=== PATIENT | male | born 1950 | race African-American/Black ===

== ENCOUNTER → 2016-10-07 | Emergency (ER) | payer BC, OTHER ==
[~2016-10-07] MED LIST: ALBUTEROL SO4 0.083% IH SOL 2.5 MG/3 ML VIAL.NEB. NEB ONE; ALBUTEROL SO4 2.5/IPRATROPIUM 0.5 INH SOL 3 ML VIAL.NEB. NEB ONE; AZITHROMYCIN 250 MG TABLET (FP) ONE; AZITHROMYCIN 250 MG TABLET (FP) PO ONE; predniSONE 20 MG TABLET (UD) ONE; predniSONE 20 MG TABLET (UD) PO ONE
[2016-10-07 04:57] VITALS: BMI 36.7
--- NOTE | 2016-10-07 05:10 | PDOC ---
History of Present Illness - General Stated Complaint: ALLERGIES, COUGH, SOB Time Seen by Provider: 10/07/16 04:48 History Source: Patient Exam Limitations: No Limitations - History of Present Illness Initial Comments: 10/07/16 05:10 66yo Male patient w/ PmHx: Asthma, Sleep Apnea, HTN, and seasonal allergies presents to ED c/o persistent cough, post nasal drip for past 4-5 days getting worse. Patient reports using Zyrtec with minimal relief. He states due to financial reasons he did not purchase singulair this year. He denies fever, CP, Abd pain, Diff breathing, rash, back pain or any other complaints at this time. Timing/Duration: reports: week Severity: reports: moderate Possible Cause: Yes: occasional episodes Modifying Factors: improves with: albuterol inhaler, coughing Associated Symptoms: reports: cough, sore throat Past History - Travel Traveled outside of the country in the last 30 days: No Close contact w/someone who was outside of country & ill: No - Past Medical History Allergies/Adverse Reactions: Allergies Allergy/AdvReac Type Severity Reaction Status Date / Time No Known Allergies Allergy Verified 08/15/15 01:28 Home Medications: Ambulatory Orders Montelukast Sodium [Singulair] 10 mg PO DAILY 10/19/11 Nebivolol HCl [Bystolic] 5 mg PO DAILY 10/19/11 Hydrocodone/Acetaminophen [Dovray 5-325 Tablet] 1 each PO PRN 08/15/15 Metaxalone [Skelaxin] 800 mg PO BID PRN 08/15/15 Azithromycin [Zithromax -] 250 mg PO DAILY #4 tablet 10/07/16 Cetirizine HCl [Zyrtec -] 10 mg PO DAILY 10/07/16 Montelukast Na [Singulair -] 10 mg PO HS #30 tablet 10/07/16 Prednisone [Prednisone 50 MG TABLETS] 50 mg PO DAILY #3 tablet 10/07/16 Asthma: Yes HTN: Yes Suicide Attempt (Hx): No Other medical history: Sleep Apnea - Immunization History Immunization Up to Date: Yes - Psycho/Social/Smoking Cessation Hx Anxiety: No Suicidal Ideation: No Smoking Status: No Smoking History: Former smoker Have you smoked in the past 12 months: No Number of Cigarettes Smoked Daily: 0 If you are a former smoker, when did you quit?: 25 years ago Information on smoking cessation initiated: No Hx Alcohol Use: No Drug/Substance Use Hx: No Substance Use Type: None Respiratory Specific PMHX - Complaint Specific PMHX Angina: No Bronchitis: No Pneumonia: No Pulmonary Embolus: No TB (Tuberculosis): No Review of Systems - Review of Systems Able to Perform ROS?: Yes Is the patient limited Macedonian proficient: No Constitutional: No: Chills, Fever HEENTM: Yes: Throat Pain Respiratory: Yes: Cough, Productive cough. No: Shortness of Breath, Stridor, Wheezing Cardiac (ROS): No: Chest Pain, Palpitations, Syncope, Chest Tightness ABD/GI: No: Constipated, Diarrhea, Nausea, Poor Appetite, Poor Fluid Intake, Vomiting, Abdominal cramping : No: Burning, Dysuria, Frequency, Flank Pain, Hematuria, Pain Musculoskeletal: No: Back Pain Integumentary: No: Bruising, Dryness, Erythema, Pruritus, Rash Neurological: No: Headache, Numbness, Paresthesia, Seizure, Ataxia, Dizziness All Other Systems: Reviewed and Negative *Physical Exam - Vital Signs Last Vital Signs Temp Pulse Resp BP Pulse Ox 98.4 F 71 18 116/81 96 10/07/16 04:52 10/07/16 04:52 10/07/16 04:52 10/07/16 04:52 10/07/16 04:52 - Physical Exam General Appearance: Yes: Nourished, Appropriately Dressed. No: Apparent Distress, Mild Distress, Moderate Distress, Severe Distress HEENT: positive: EOMI, SAILAJA, Normal ENT Inspection, Normal Voice, Symmetrical, TMs Normal, Pharynx Normal, Pharyngeal Erythema. negative: Tonsillar Exudate, Tonsillar Erythema, Nasal Congestion, Rhinorrhea, Sinus Tenderness, TM Bulging, TM Dull, TM Erythema Neck: positive: Trachea midline, Normal Thyroid, Supple. negative: Stridor, Lymphadenopathy (R), Lymphadenopathy (L) Respiratory/Chest: positive: Lungs Clear, Normal Breath Sounds. negative: Chest Tender, Respiratory Distress, Accessory Muscle Use, Labored Respiration, Rapid RR Cardiovascular: positive: Regular Rhythm, Regular Rate Gastrointestinal/Abdominal: positive: Normal Bowel Sounds, Soft. negative: Distended, Guarding, Rebound, Tenderness Musculoskeletal: positive: Normal Inspection. negative: CVA Tenderness Extremity: positive: Normal Capillary Refill, Normal Inspection, Normal Range of Motion. negative: Pedal Edema, Swelling, Calf Tenderness, Erythema, Inflammation Integumentary: positive: Normal Color, Dry, Warm. 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 He states he would like to be d/c'd. *DC/Admit/Observation/Transfer Diagnosis at time of Disposition: Bronchitis - Discharge Dispostion Disposition: HOME Condition at time of disposition: Improved Admit: No - Prescriptions Prescriptions: Prednisone [Prednisone 50 MG TABLETS] 50 mg PO DAILY #3 tablet Montelukast Na [Singulair -] 10 mg PO HS #30 tablet Azithromycin [Zithromax -] 250 mg PO DAILY #4 tablet - Patient Instructions Printed Discharge Instructions: DI for Acute Bronchitis Additional Instructions: FOLLOW UP WITH YOUR DOCTOR NEEDED. TAKE MEDICATIONS PRESCRIBED. RETURN IF SYMPTOMS WORSEN OR ANY CONCERNS FOR FURTHER EVALUATION. DRINK PLENTY FLUIDS. Print Language: PERSIAN
--- NOTE | 2016-10-07 05:45 | PDOC ---
*Physical Exam - Vital Signs Last Vital Signs Temp Pulse Resp BP Pulse Ox 98.4 F 71 18 116/81 96 10/07/16 04:52 10/07/16 04:52 10/07/16 04:52 10/07/16 04:52 10/07/16 04:52 ED Treatment Course - Medications Given in the ED: ED Medications Discontinued Medications Generic Name Dose Route Start Last Admin Trade Name Fabrizio PRN Reason Stop Dose Admin Albuterol Sulfate 1 amp 10/07/16 05:02 10/07/16 05:29 Ventolin 0.083% Nebulizer Soln - NEB 10/07/16 05:03 1 amp ONCE ONE Administration Azithromycin 500 mg 10/07/16 05:03 10/07/16 05:25 Zithromax - PO 10/07/16 05:04 500 mg ONCE ONE Administration Prednisone 60 mg 10/07/16 05:03 10/07/16 05:25 Deltasone - PO 10/07/16 05:04 60 mg ONCE ONE Administration Medical Decision Making - Medical Decision Making 10/07/16 05:45 agree with care from KENDRICK Buchanan *DC/Admit/Observation/Transfer Diagnosis at time of Disposition: Bronchitis - Discharge Dispostion Disposition: HOME Condition at time of disposition: Improved - Prescriptions Prescriptions: Prednisone [Prednisone 50 MG TABLETS] 50 mg PO DAILY #3 tablet Montelukast Na [Singulair -] 10 mg PO HS #30 tablet Azithromycin [Zithromax 250mg Tablets -] 250 mg PO DAILY #4 tablet - Referrals Referrals: Mali Rachel MD [Primary Care Provider] - - Patient Instructions Printed Discharge Instructions: DI for Acute Bronchitis Additional Instructions: FOLLOW UP WITH YOUR DOCTOR NEEDED. TAKE MEDICATIONS PRESCRIBED. RETURN IF SYMPTOMS WORSEN OR ANY CONCERNS FOR FURTHER EVALUATION. DRINK PLENTY FLUIDS. Print Language: ECUADOREAN - Post Discharge Activity Work/School Note: Back to Work
[2016-10-07 07:13] VITALS: BP 146/85; PULSE 69; TEMP 98.2
== END | disposition home or self-care (01) ==
LOC: JER 03:57
PROC: 3E0F7GC Introduction of Other Therapeutic Substance into Respiratory Tract, Via Natural or Artificial Opening (ICD-10-PCS; principal; 2016-10-07)
DX: J40 Bronchitis, not specified as acute or chronic (principal); I10 Essential (primary) hypertension; J45.909 Unspecified asthma, uncomplicated; J30.2 Other seasonal allergic rhinitis; G47.30 Sleep apnea, unspecified; Z87.891 Personal history of nicotine dependence
CPT/HCPCS: 99281-25

== ENCOUNTER 2018-03-05 06:46 | Emergency (ER) | payer OTHER, BC ==
[2018-03-05 07:21] VITALS: BMI 36.6
--- NOTE | 2018-03-05 07:22 | PDOC ---
History of Present Illness - General Chief Complaint: Pain Stated Complaint: NECK PAIN Time Seen by Provider: 03/05/18 07:15 History Source: Patient Exam Limitations: No Limitations - History of Present Illness Initial Comments: 03/05/18 07:53 Mr. Staton is a 67 yo M with a hx of HTN, asthma, and AKHIL who presents to the emergency department with bilateral neck pain that has been ongoing for 3 days. 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 He states the pain is stabbing like, random onset, lasts for seconds, and relieves on its own. Denies having the following associative symptoms during the episode: headaches, visual changes, dizziness, lightheadedness, nausea, and vomiting. On Thursday, he experienced a chest pressure that lasted for 5-10 minutes while at rest without radiation located in the center of the chest. He denies having chest pain in the past and denies SOB/chest pain with exertion. Denies the following: fever, chills, nausea , vomiting, current chest pain and SOB, abdominal pain, dysuria, hematuria, melena, hematochezia, and leg pain/swelling. Denies recent trauma. Pmhx: Refer to above Shx: retina repair 9 months ago right eye Meds: bystolic, ventolin, multivitamin Allergies: NKDA Social hx: Denies tobacco, alcohol, and substance abuse. PMD: Dr. Sung Past History - Past Medical History Allergies/Adverse Reactions: Allergies Allergy/AdvReac Type Severity Reaction Status Date / Time No Known Allergies Allergy Verified 03/05/18 07:08 Home Medications: Ambulatory Orders Nebivolol HCl [Bystolic] 5 mg PO DAILY 10/19/11 Montelukast Na [Singulair -] 10 mg PO HS #30 tablet 10/07/16 Aspirin 81 mg PO DAILY 03/05/18 Asthma: Yes (on remission) COPD: No HTN: Yes Other medical history: Sleep apnea - Immunization History Immunization Up to Date: Yes - Suicide/Smoking/Psychosocial Hx Smoking Status: No Smoking History: Never smoked Have you smoked in the past 12 months: No Number of Cigarettes Smoked Daily: 0 If you are a former smoker, when did you quit?: 25 years ago Information on smoking cessation initiated: No Hx Alcohol Use: No Drug/Substance Use Hx: No Substance Use Type: None Review of Systems - Review of Systems Able to Perform ROS?: Yes Is the patient limited Somali proficient: No Constitutional: No: Chills, Diaphoresis, Fever HEENTM: Yes: Nose Congestion. No: Eye Pain, Recent change in vision, Ear Pain, Nose Pain, Throat Pain, Mouth Pain Respiratory: No: Cough, Shortness of Breath, SOB with Exertion, SOB at Rest Cardiac (ROS): Yes: Chest Pain (thursday episode). No: Irregular Heart Rate, Lightheadedness, Palpitations, Syncope, Chest Tightness ABD/GI: No: Constipated, Diarrhea, Nausea, Rectal Bleeding, Vomiting, Tarry Stools : No: Burning, Dysuria, Hematuria Musculoskeletal: No: Back Pain, Neck Pain Integumentary: No: Rash Neurological: No: Headache, Numbness, Tremors, Weakness Psychiatric: Yes: Stressors. No: Anxiety Endocrine: No: Unexplained Weight Gain Hematologic/Lymphatic: No: Anemia *Physical Exam - Vital Signs Last Vital Signs Temp Pulse Resp BP Pulse Ox 97.7 F 57 L 20 137/93 98 03/05/18 07:09 03/05/18 07:09 03/05/18 07:09 03/05/18 07:09 03/05/18 07:09 - Physical Exam General Appearance: Yes: Nourished, Appropriately Dressed. No: Apparent Distress HEENT: positive: EOMI, SAILAJA, Normal ENT Inspection, Normal Voice, Symmetrical, TMs Normal, Pharynx Normal. negative: Rhinorrhea Neck: positive: Trachea midline. negative: Tender, Carotid bruit, Lymphadenopathy (R), Lymphadenopathy (L) Respiratory/Chest: positive: Lungs Clear, Normal Breath Sounds, Accessory Muscle Use. negative: Chest Tender, Respiratory Distress Cardiovascular: positive: Regular Rhythm, S1, S2, Bradycardia. negative: Systolic Murmur Gastrointestinal/Abdominal: positive: Normal Bowel Sounds, Flat, Soft. negative : Tender, Pulsatile Mass Lymphatic: negative: Adenopathy Musculoskeletal: positive: Normal Inspection. negative: CVA Tenderness Extremity: positive: Normal Capillary Refill, Normal Inspection, Normal Range of Motion. 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 negative: Sensory Deficit Heart Score/ECG Review - ECG Intrepretation Comment:: 03/05/18 21:41 ventricular rate is 50 bpm, NE 196 ms, QRS duration is 108 ms, QTc is 412 ms. Sinus bradycardia. No ST elevations or depressions noted. ED Treatment Course - LABORATORY CBC & Chemistry Diagram: 03/05/18 08:10 03/05/18 08:10 Medical Decision Making - Medical Decision Making Mr. Staton is a 67 yo M with a hx of HTN, asthma, and AKHIL who presents to the emergency department with bilateral neck pain that has been ongoing for 3 days. Initial vitals: Initial Vital Signs Temp Pulse Resp BP Pulse Ox 97.7 F 57 L 20 137/93 98 03/05/18 07:09 03/05/18 07:09 03/05/18 07:09 03/05/18 07:09 03/05/18 07:09 ddx: carotid dissection vs msk pain vs ACS vs PNA vs pleuritis vs dysrhythmia vs metabolic disturbance. Work up: Laboratory Results - last 24 hr 03/05/18 03/05/18 03/05/18 08:10 08:10 11:01 WBC 3.9 L RBC 4.06 Hgb 14.0 Hct 39.7 MCV 97.7 H MCH 34.5 H MCHC 35.3 RDW 13.2 Plt Count 181 MPV 8.8 Absolute Neuts (auto) 1.7 Neutrophils % 43.7 Lymphocytes % 39.7 Monocytes % 13.4 H Eosinophils % 2.4 Basophils % 0.8 Nucleated RBC % 0 Sodium 141 Potassium 5.2 H Chloride 108 H Carbon Dioxide 26 Anion Gap 7 L BUN 15 Creatinine 0.7 Creat Clearance w eGFR > 60 Random Glucose 79 Calcium 8.0 L Total Bilirubin 0.4 AST 35 ALT 29 Alkaline Phosphatase 47 Creatine Kinase 273 233 Creatine Kinase Index 0.3 0.4 CK-MB (CK-2) 1.0 < 1.0 Troponin I < 0.02 < 0.02 Total Protein 7.0 Albumin 3.7 The patients hx and PE warranted an ACS r/o. Upon re-evaluation, the patient had a previous angioplasty in the past that showed one of the coronary arteries having 30% occlusion. denies hx of PA. EKG did not show active ischemia or previous infarct. The patient had a troponin drawn that was negative. Given that the patients pain was episodic, lasting seconds and was not sustained and progressively worsening with HENT complaints without inciting event, less likely to be dissection. CXR did not show acute pathologies. Likely this pain is secondary to muscular pain likely due increase in work load and stress. Will discharge the patient with close follow up with PMD as well strict return precautions. The patient understood the plan and agreed to it. Dispo: DC *DC/Admit/Observation/Transfer Diagnosis at time of Disposition: Neck pain Chest pain Qualifiers: Chest pain type: unspecified Qualified Code(s): R07.9 - Chest pain, unspecified - Discharge Dispostion Disposition: HOME Decision to Admit order: No - Referrals Referrals: Mali Rachel MD [Primary Care Provider] - Garry Marion MD [Staff Physician] - - Patient Instructions Printed Discharge Instructions: DI for Atypical Chest Pain Additional Instructions: You were seen in the emergency department for the evaluation of your neck pain and subsequent chest pain. You had an EKG done which was within normal limits. We evaluated your cardiac enzymes and they were within normal limits. 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 Please return to the emergency department if you have sustained chest pain, new qualities associated with the pain, and lightheadedness/dizziness/visual changes. Thank you. - Post Discharge Activity
[2018-03-05 08:19] LABS: BASO % 0.8 % (0-2.0); EOS % 2.4 % (0-4.5); HEMATOCRIT 39.7 % (35.4-49); LYMPH % 39.7 % (8-40); MCH 34.5 pg (25.7-33.7); MCHC 35.3 g/dl (32.0-35.9); MEAN CELL VOLUME 97.7 fl (80-96); MEAN PLT VOLUME 8.8 fl (7.5-11.1); MONO % 13.4 % (3.8-10.2); NEUT % 43.7 % (42.8-82.8); PLATELET COUNT 181 K/MM3 (134-434); RBC 4.06 M/mm3 (4.00-5.60); RDW 13.2 % (11.9-15.9); WHITE BLOOD COUNT 3.9 K/mm3 (4.0-10.0)
--- NOTE | 2018-03-05 08:27 | PDOC ---
Attending Attestation - Resident Resident Name: Warren Jarrell - ED Attending Attestation I have performed the following: I have examined & evaluated the patient, The case was reviewed & discussed with the resident, I agree w/resident's findings & plan, Exceptions are as noted - HPI HPI: 03/05/18 13:25 67 years old past medical history significant for hypertension no family history of coronary artery disease no tobacco presents with seconds of bilateral neck discomfort last week and and Thursday a very brief episode of chest discomfort seconds as well no radiation no associated dizziness lightheadedness nausea vomiting In the emergency department patient also had a second of brief discomfort - Physicial Exam PE: 03/05/18 13:25 Vitals: Triage Vital signs reviewed General Appearance: no acute distress, well nourished well developed, Head: Atraumatic, Neck: Supple;No Nucal rigidity, no bruits Chest Wall: Nontender Cardiac: Regular rate and rhythym, no murmurs, no rubs, no gallops, Lungs: Clear to auscultation bilateral, good air movement bilaterally, Abdomen: Soft, non distended, normal bowel sounds, non tender to palpation Extremities: Full range of motion to all extremities, no cyanosis, clubbing, or edema Skin: Warm and dry, no rashes or lesions, no rash, no petechiae Psych: normal mood, normal affect - Medical Decision Making 67 years old with atypical chest discomfort heart score 3 EKG nonischemic first troponin negative Given very brief seconds of pain in the emergency department a second troponin sent which was also negative Patient feels comfortable is pain-free 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 Findings, need for follow-up and strict return instructions discussed patient. Heart Score/ECG Review - History History: Slightly suspicious - Electrocardiogram EKG: Normal - Age Age: >/= 65 - Risk Factors Risk Factors Heart Score: Yes Hx Hypertension Based on the list above the patient has:: 1-2 risk factors - Troponin Troponin: </= normal limit - Score Heart Score - Total: 3 - ECG Impressions Comment:: 03/05/18 11:[address] elevations noted T-wave inversions.
[2018-03-05 08:49] LABS: ALBUMIN 3.7 g/dl (3.4-5.0); ALK PHOS 47 U/L (45-117); ANION GAP 7 MMOL/L (8-16); BILIRUBIN,TOTAL 0.4 mg/dL (0.2-1); BLOOD UREA NITROGEN 15 mg/dL (7-18); CHLORIDE 108 mmol/L (98-107); CO2 26 mmol/L (21-32); CREATININE 0.7 mg/dL (0.55-1.3); GLUCOSE,RANDOM 79 mg/dL (74-106); POTASSIUM 5.2 mmol/L (3.5-5.1); SGOT/AST 35 U/L (15-37); SGPT/ALT 29 U/L (13-61); SODIUM 141 mmol/L (136-145)
[2018-03-05 11:46] VITALS: BP 120/72; PULSE 63; TEMP 98.6
--- NOTE | 2018-03-07 19:20 | EKG ---
Test Reason : Blood Pressure : / mmHG Vent. Rate : 050 BPM Atrial Rate : 050 BPM P-R Int : 196 ms QRS Dur : 108 ms QT Int : 452 ms P-R-T Axes : 057 -04 013 degrees QTc Int : 412 ms SINUS BRADYCARDIA MINIMAL VOLTAGE CRITERIA FOR LVH, MAY BE NORMAL VARIANT BORDERLINE ECG WHEN COMPARED WITH ECG OF 26-NOV-2012 00:50, VENT. RATE HAS DECREASED BY 50 BPM Confirmed by HASMUKH STROUD, EDUARDO ([id number]) on 03/07/2018 7:20:48 PM Referred By: Confirmed By:EDUARDO NOE MD
== END 2018-03-05 12:27 | disposition home or self-care (01) ==
LOC: JER 06:46
DX: M54.2 Cervicalgia (principal); R07.9 Chest pain, unspecified; J45.909 Unspecified asthma, uncomplicated; I10 Essential (primary) hypertension; Z87.891 Personal history of nicotine dependence; G47.30 Sleep apnea, unspecified
CPT/HCPCS: 36415; 71046-TC-FY; 80053; 82550; 82553; 84484; 85025; 93005; 93010; 99284-25

== ENCOUNTER 2018-11-03 06:18 | Emergency (ER) | payer OTHER, BC ==
[2018-11-03 07:01] VITALS: TEMP 98.8; BMI 36.8
[2018-11-03 07:54] LABS: BASO % 1.1 % (0-2.0); EOS % 1.9 % (0-4.5); HEMATOCRIT 39.9 % (35.4-49); HEMOGLOBIN 13.9 GM/dL (11.7-16.9); LYMPH % 33.2 % (8-40); MCHC 34.8 g/dl (32.0-35.9); MEAN CELL VOLUME 97.7 fl (80-96); MEAN PLT VOLUME 7.8 fl (7.5-11.1); MONO % 12.3 % (3.8-10.2); NEUT % 51.5 % (42.8-82.8); PLATELET COUNT 186 K/MM3 (134-434); RBC 4.08 M/mm3 (4.00-5.60); RDW 13.2 % (11.9-15.9); WHITE BLOOD COUNT 4.4 K/mm3 (4.0-10.0)
[2018-11-03 08:32] LABS: INR 1.04 (0.83-1.09); PROTHROMBIN TIME (PATIENT) 12.3 SEC (9.7-13.0)
[2018-11-03 08:33] LABS: ALBUMIN 3.8 g/dl (3.4-5.0); BILIRUBIN,TOTAL 0.6 mg/dL (0.2-1); BLOOD UREA NITROGEN 16.1 mg/dL (7-18); CALCIUM 8.5 mg/dL (8.5-10.1); CREATININE 0.9 mg/dL (0.55-1.3); POTASSIUM 4.4 mmol/L (3.5-5.1); TOT PROT 6.8 g/dl (6.4-8.2)
[2018-11-03 08:33] LABS: MAGNESIUM 2.4 mg/dL (1.8-2.4)
--- NOTE | 2018-11-03 08:33 | PDOC ---
Documentation entered by Blanche Salinas SCRIBE, acting as scribe for Cheikh London MD. Cheikh London MD: This documentation has been prepared by the Rita yap Sammi, SCRIBE, under my direction and personally reviewed by me in its entirety. I confirm that the documentation accurately reflects all work, treatment, procedures, and medical decision making performed by me. History of Present Illness - General Chief Complaint: Respiratory Stated Complaint: PRODUCTIVE COUGH Time Seen by Provider: 11/03/18 07:08 History Source: Patient Exam Limitations: No Limitations - History of Present Illness Initial Comments: 11/03/18 07:45 The patient is a 68 year old male, with a significant PMH of HTN, asthma, bronchitis, sleep apnea, who presents to the emergency department for evaluation of 3 episodes of coughing up blood. The patient states he woke up around 5am this morning and noticed blood in his mouth that he assumed was from his removable dental implant. He reports subsequently coughing 3 times and spit up about 2-3 tablespoons of bright red blood after rinsing his mouth. He reports touching the blood in the sink to see if it was mixed in with mucous and he said it "felt like it." The patient states he went to inform his , went back into the bathroom to cough again, and it was only clear phlegm. The patient also reports a dull chest pain below the ribs b/l on and off for 1 week. Denies central or sternal CP. He notes he does not clean his CPAP machine as often as he should and believes he may have an infection causing the bleeding. Denies fevers, chills, coughing prior to today. He states he has had blood in his phlegm in the past that was diagnosed as bronchitis. Pt has no hx smoking. He does not have significant hx of second hand smoke as his quit before they were . No recent travel or TB exposure. The patient denies new onset of SOB, headache, dizziness, focal weakness/numbness, nausea, vomiting , diarrhea and constipation. Past History - Past Medical History Allergies/Adverse Reactions: Allergies Allergy/AdvReac Type Severity Reaction Status Date / Time No Known Allergies Allergy Verified 11/03/18 07:00 Home Medications: Ambulatory Orders Nebivolol HCl [Bystolic] 5 mg PO DAILY 10/19/11 Montelukast Na [Singulair -] 10 mg PO HS #30 tablet 10/07/16 Aspirin 81 mg PO DAILY 03/05/18 Asthma: Yes (on remission) COPD: No HTN: Yes - Immunization History Immunization Up to Date: Yes - Suicide/Smoking/Psychosocial Hx Smoking Status: No Smoking History: Never smoked Have you smoked in the past 12 months: No Number of Cigarettes Smoked Daily: 0 If you are a former smoker, when did you quit?: 25 years ago Information on smoking cessation initiated: No Hx Alcohol Use: Yes Drug/Substance Use Hx: No Substance Use Type: None Respiratory Specific PMHX - Complaint Specific PMHX Angina: No Bronchitis: No Pneumonia: No Pulmonary Embolus: No TB (Tuberculosis): No Review of Systems - Review of Systems Comments:: 11/03/18 07:47 GENERAL/CONSTITUTIONAL: No fever or chills. No weakness. HEAD, EYES, EARS, NOSE AND THROAT: No change in vision. No ear pain or discharge. No sore throat. GASTROINTESTINAL: No nausea, vomiting, diarrhea or constipation. GENITOURINARY: No dysuria, frequency, or change in urination. CARDIOVASCULAR: No chest pain or shortness of breath. RESPIRATORY: (+)3 episodes hemoptysis. No wheezing, or hemoptysis. MUSCULOSKELETAL: No joint or muscle swelling or pain. No neck or back pain. SKIN: No rash NEUROLOGIC: No headache, vertigo, loss of consciousness, or change in strength/ sensation. *Physical Exam - Vital Signs Last Vital Signs Temp Pulse Resp BP Pulse Ox 98.8 F 72 16 145/80 98 11/03/18 06:20 11/03/18 06:20 11/03/18 06:20 11/03/18 06:20 11/03/18 06:20 - Physical Exam Comments: 11/03/18 07:49 GENERAL: Awake, alert, and fully oriented, in no acute distress HEAD: No signs of trauma EYES: PERRLA, EOMI, sclera anicteric, conjunctiva clear ENT: Auricles normal inspection, hearing grossly normal, nares patent, oropharynx clear without exudates. Moist mucosa NECK: Normal ROM, supple, no lymphadenopathy, JVD, or masses LUNGS: Breath sounds equal, clear to auscultation bilaterally. No wheezes, and no crackles HEART: Regular rate and rhythm, normal S1 and S2, no murmurs, rubs or gallops ABDOMEN: Soft, nontender, normoactive bowel sounds. No guarding, no rebound. No masses EXTREMITIES: Normal range of motion, no edema. No clubbing or cyanosis. No cords , erythema, or tenderness BACK: No midline spinal tenderness in cervical/thoracic/lumbar region NEUROLOGICAL: Normal speech, cranial nerves intact, negative pronator drift, 5/ 5 strength in all 4 extremities, normal sensation to light touch in all 4 extremities, normal cerebellar exam, normal tone Heart Score/ECG Review - History History: Slightly suspicious - Electrocardiogram EKG: Normal - Age Age: >/= 65 - Risk Factors Based on the list above the patient has:: 1-2 risk factors - Troponin Troponin: </= normal limit - Score Heart Score - Total: 3 #1 11/03/18 08:14 Twelve-lead EKG was performed and reviewed by me. Sinus bradycardia, rate 55. Normal axis. No ST elevations or T-wave inversions. ED Treatment Course - LABORATORY CBC & Chemistry Diagram: 11/03/18 07:30 11/03/18 07:28 - RADIOLOGY Radiology Studies Ordered: Category Date Time Status CHEST X-RAY PORTABLE* [RAD] Stat Radiology 11/03/18 07:29 Taken Medical Decision Making - Medical Decision Making 11/03/18 08:17 68yo M hx HTN, sleep apnea, asthma presents to the ED with 3 episodes of small volume hemoptysis with clear sputum afterwards It is unclear if the pt had gingival bleeding prior to the coughing as he states he has bled from his temporary implant in the past Vitals unremarkble, pt is well appearing DDx includes bronchitis vs PNA vs PE vs malignancy vs gingival bleeding Pt is c/o 1 week of on and off dull b/l lower rib non pleuritic chest pain, does not have any currently He has no SOB and normal vitals and is low risk for PE, as such will send d- dimer Will check labs including coags, XR to look for malignancy, infection and reassess 11/03/18 12:04 Labs including dimer, trop x2 negative CXR clear Pt very well appearing throughout ED stay Possible bronchitis vs bleeding from gingiva Pt reliable to return if any recurring or new/concerning symptoms Will f/u with PMD within 1-2 days I discussed the physical exam findings, ancillary test results and final diagnoses with the patient. I answered all of the patient's questions. The patient was satisfied with the care received and felt comfortable with the discharge plan and treatment plan. The patient will call their primary care physician within 24 hours to arrange follow-up and will return to the Emergency Department with any new, persistent or worsening symptoms. *DC/Admit/Observation/Transfer Diagnosis at time of Disposition: Hemoptysis, Cough, Chest pain - Discharge Dispostion Disposition: HOME Condition at time of disposition: Improved - Referrals Referrals: Katerin Sung MD [Primary Care Provider] - - Patient Instructions Printed Discharge Instructions: DI for Hemoptysis Additional Instructions: You came to the emergency department today after you have multiple episodes of coughing up blood. Your labs and chest x-ray were all normal. You had no further episodes of bleeding in the emergency department and we believe it is safe for you to go home at this time. Follow up with your primary care doctor within 1-2 days. Return to the emergency department if you have any new, worsening, or concerning symptoms It was a pleasure to take care of you in the emergency department today, we hope you feel better soon! - Post Discharge Activity - Attestations Physician Attestion: 11/03/18 12:09 I, Dr. Cheikh London MD, attest that this document has been prepared under my direction and personally reviewed by me in its entirety. I further attest, that it accurately reflects all work, treatment, procedures and medical decision -making performed by me.
--- NOTE | 2018-11-03 08:33 | EKG ---
Test Reason : Blood Pressure : / mmHG Vent. Rate : 055 BPM Atrial Rate : 055 BPM P-R Int : 202 ms QRS Dur : 096 ms QT Int : 460 ms P-R-T Axes : 063 -09 030 degrees QTc Int : 440 ms SINUS BRADYCARDIA MINIMAL VOLTAGE CRITERIA FOR LVH, MAY BE NORMAL VARIANT SEPTAL INFARCT , AGE UNDETERMINED ABNORMAL ECG WHEN COMPARED WITH ECG OF 05-MAR-2018 07:56, NO SIGNIFICANT CHANGE WAS FOUND Confirmed by DAVID STROUD, LUIS EDUARDO ([id number]) on 11/03/2018 8:33:24 AM Referred By: Confirmed By:LUIS EDUARDO HERNANDEZ MD
[2018-11-03 08:35] LABS: ACTIVATED PTT 34.2 SECONDS (25.2-36.5)
[2018-11-03 12:34] VITALS: BP 128/75; PULSE 55
== END 2018-11-03 12:36 | disposition home or self-care (01) ==
LOC: JER 06:18
DX: R04.2 Hemoptysis (principal); R05 Cough; R07.9 Chest pain, unspecified; I10 Essential (primary) hypertension; G47.30 Sleep apnea, unspecified; Z87.891 Personal history of nicotine dependence
CPT/HCPCS: 36415; 71045-TC-FY; 80053; 83735; 83880; 84484; 85025; 85379; 85610; 85730; 86850; 86900; 86901; 93005; 93010; 99282-25

== ENCOUNTER 2019-01-31 12:52 | Emergency (ER) | payer OTHER, BC ==
[2019-01-31 13:07] VITALS: BP 152/86; PULSE 81; TEMP 98.3; BMI 36.8
--- NOTE | 2019-01-31 14:08 | PDOC ---
History of Present Illness - General Chief Complaint: Pain Stated Complaint: PAIN/COUGH Time Seen by Provider: 01/31/19 13:03 History Source: Patient - History of Present Illness Initial Comments: 01/31/19 15:18 Chief complaint: Cough Patient is 68-year-old male with a history of sleep apnea, asthma and hypertension. Patient states that he had recent episode of lower back pain due to over exercise and had spasms. He was taking hydrocodone for it after seeing Dr. Cohen. Back is getting better but patient developed cough over the last week. Patient is now continuing to take hydrocodone for the cough as it helps minimize the back from also bothering him when he coughs. Patient has no fever , shortness of breath, no wheezing. Patient only takes Singulair for his asthma and has not had an attack in about 8 years. Patient is not using inhalers, he is usually mostly using cough drops and the hydrocodone at night. Patient is complaining of dry cough with some minimal nasal congestion. Patient appears very well comfortable,. GENERAL/CONSTITUTIONAL: No fever, weakness. dizziness HEAD, EYES, EARS, NOSE AND THROAT: No change in vision. No ear pain or discharge. No sore throat. CARDIOVASCULAR: No chest pain RESPIRATORY: No shortness of breath or cough GASTROINTESTINAL: No pain, nausea, vomiting, diarrhea or constipation GENITOURINARY: No dysuria MUSCULOSKELETAL: No neck or back pain SKIN: No rash NEUROLOGIC: No headache, vertigo, loss of consciousness, or loss of sensation. GENERAL: The patient is awake, alert, and fully oriented, in no acute distress. HEAD: Normal with no signs of trauma. EYES: Pupils equal, round and reactive to light, sclera anicteric, conjunctiva clear. ENT: pharynx: no erythema, no exudate, uvula midline NECK: supple CHEST: clear, nontender, rr ABD: soft, nontender BACK: no tenderness or signs of injury EXTREMITIES: Normal range of motion, no edema. NEUROLOGICAL: Normal speech, normal gait. SKIN: Warm, Dry Past History - Past Medical History Allergies/Adverse Reactions: Allergies Allergy/AdvReac Type Severity Reaction Status Date / Time No Known Allergies Allergy Verified 01/31/19 13:00 Home Medications: Ambulatory Orders Nebivolol HCl [Bystolic] 5 mg PO DAILY 10/19/11 Montelukast Na [Singulair -] 10 mg PO HS #30 tablet 10/07/16 Aspirin 81 mg PO DAILY 03/05/18 Benzonatate [Tessalon Pearls -] 200 mg PO TID #40 cap 01/31/19 Hydrocodone Bit/Homatrop Me-Br [Hydrocodone-Homatropine Syrup] 5 ml PO HS PRN # 60 syrup MDD 10 01/31/19 predniSONE [Deltasone -] 40 mg PO DAILY #10 tablet 01/31/19 Asthma: Yes (on remission) COPD: No HTN: Yes - Immunization History Immunization Up to Date: Yes - Psycho Social/Smoking Cessation Hx Smoking Status: No Smoking History: Never smoked Have you smoked in the past 12 months: No Number of Cigarettes Smoked Daily: 0 If you are a former smoker, when did you quit?: 25 years ago Information on smoking cessation initiated: No Hx Alcohol Use: No Drug/Substance Use Hx: No Substance Use Type: None *Physical Exam - Vital Signs Last Vital Signs Temp Pulse Resp BP Pulse Ox 98.3 F 81 17 152/86 98 01/31/19 12:55 01/31/19 12:55 01/31/19 12:55 01/31/19 12:55 01/31/19 12:55 Medical Decision Making - Medical Decision Making 01/31/19 15:20 Well-appearing 68-year-old male with cough for 1 week, nasal congestion, no fever, no wheezing, no shortness of breath, no chest pain. Patient was mostly concerned that the cough was exacerbating a previous back injury that he recently had and was resolving. There is no indication for imaging or further work-up. Patient is mostly compartment certain that the cough is giving him further back pain. Patient is not having frequent cough during the exam, able speak in full sentences, is moving around well and joking. Cough is a dry cough with minimal nasal congestion. Discussed fully with patient what he is concerned about. Patient has a Ventolin inhaler. Patient is mostly concerned of having some kind of medication to minimize the coughing. Discussed the use of Tessalon Perles during the day. We will also give patient prescription for prednisone in case he has to start using his inhaler and is not working. And also for Hycodan cough syrup at night to replace the hydrocodone he has been using for his back. Patient was fully counseled in not using both of them together in the same day. And this is only for bedtime. Patient has a doctor to follow-up with. Discussed issues, findings, results, applicable medications and treatments and follow-up. All these were understood and all questions were answered Discharge - Discharge Information Problems reviewed: Yes Clinical Impression/Diagnosis: Cough Condition: Stable Disposition: HOME - Admission No - Additional Discharge Information Prescriptions: Benzonatate [Tessalon Pearls -] 200 mg PO TID #40 cap Hydrocodone Bit/Homatrop Me-Br [Hydrocodone-Homatropine Syrup] 5 ml PO HS PRN # 60 syrup MDD 10 PRN Reason: Cough predniSONE [Deltasone -] 40 mg PO DAILY #10 tablet - Follow up/Referral Referrals: Katerin Sung MD [Primary Care Provider] - - Patient Discharge Instructions Patient Printed Discharge Instructions: DI for Cough -- Adult Additional Instructions: You can take Tessalon Perles as directed during the daytime Use your inhaler if you feel you are wheezing. If that does not work well enough, you can start the prednisone but do not take the prednisone unless you feel like your inhaler is not working. You can take the cough medicine at night, and has a narcotic in it, do not take the hydrocodone pills and the cough medicine at nighttime. It is one or the other. Follow-up with your regular doctor. Return to the ER if fever, shortness of breath, feeling sicker, difficulty swallowing, or other concerns - Post Discharge Activity
== END 2019-01-31 15:06 | disposition home or self-care (01) ==
LOC: JERFT 12:52
DX: R05 Cough (principal); M54.5 Low back pain; M62.830 Muscle spasm of back; I10 Essential (primary) hypertension; J45.909 Unspecified asthma, uncomplicated; G47.39 Other sleep apnea
CPT/HCPCS: 99281-25

== ENCOUNTER 2019-05-25 19:43 | Emergency (ER) | payer OTHER, BC ==
--- NOTE | 2019-05-25 20:10 | PDOC ---
Rapid Medical Evaluation Time Seen by Provider: 05/25/19 19:45 Medical Evaluation: Allergies Allergy/AdvReac Type Severity Reaction Status Date / Time No Known Allergies Allergy Verified 01/31/19 13:00 05/25/19 20:07 CC: LLQ pain x4 days PE: firm SQ mass to LLQ. TTP over mass. No erythema present. ?hernia Orders: deferred Patient will proceed to ER for further evaluation. Discharge Disposition - Diagnosis Abdominal discomfort in left lower quadrant - Referrals - Patient Instructions - Post Discharge Activity
[2019-05-25 20:17] VITALS: TEMP 98.4; BMI 37.7
[2019-05-25 22:50] LABS: HEMATOCRIT 40.4 % (35.4-49); HEMOGLOBIN 13.9 GM/dL (11.7-16.9); LYMPH % 40.4 % (8-40); MCH 34.4 pg (25.7-33.7); MCHC 34.5 g/dl (32.0-35.9); MEAN CELL VOLUME 99.7 fl (80-96); MEAN PLT VOLUME 8.5 fl (7.5-11.1); MONO % 10.5 % (3.8-10.2); NEUT % 46.1 % (42.8-82.8); PLATELET COUNT 196 K/MM3 (134-434); RBC 4.06 M/mm3 (4.00-5.60); WHITE BLOOD COUNT 6.3 K/mm3 (4.0-10.0)
[2019-05-25] MEDS ORDERED: morphine CARPU-JECT 4 MG/1 ML DISP.SYRIN IVPUSH ONE (22:57)
[2019-05-25] MEDS ORDERED: SODIUM CHLORIDE 0.9% 1000 ML INFUS.BAG IV ONE (22:57)
--- NOTE | 2019-05-25 22:57 | PDOC ---
Documentation entered by Munir Donahue SCRIBE, acting as scribe for Trini Basurto DO. Trini Basurto, : This documentation has been prepared by the Rowan yap Xhesika, SCRIBE, under my direction and personally reviewed by me in its entirety. I confirm that the documentation accurately reflects all work, treatment, procedures, and medical decision making performed by me. History of Present Illness - General Chief Complaint: Back Pain Stated Complaint: LLQ/PAIN Time Seen by Provider: 05/25/19 19:45 History Source: Patient Exam Limitations: No Limitations - History of Present Illness Initial Comments: 05/25/19 22:32 The patient is a 69 year old male with a significant PMH of umbilical hernia, diverticulitis, HTN, asthma, bronchitis, sleep apnea who presents to the emergency department for LLQ pain x4days. Pt describes the pain as sharp pain worsening with movements (twisting and bending down). Pt states he has been going to PT since january for leg spasms, most recent PT today (which was successful). Patient states he was walking with a cane up until last week. Pt states he has been having normal BM everyday. The patient denies chest pain, shortness of breath, headache and dizziness. Denies fever, chills, cough, nausea, vomiting, diarrhea and constipation. Denies dysuria, frequency, urgency and hematuria. Allergies: NKDA Past History - Past Medical History Allergies/Adverse Reactions: Allergies Allergy/AdvReac Type Severity Reaction Status Date / Time No Known Allergies Allergy Verified 01/31/19 13:00 Home Medications: Ambulatory Orders Nebivolol HCl [Bystolic] 5 mg PO DAILY 10/19/11 Montelukast Na [Singulair -] 10 mg PO HS #30 tablet 10/07/16 Aspirin 81 mg PO DAILY 03/05/18 Benzonatate [Tessalon Pearls -] 200 mg PO TID #40 cap 01/31/19 Hydrocodone Bit/Homatrop Me-Br [Hydrocodone-Homatropine Syrup] 5 ml PO HS PRN # 60 syrup MDD 10 01/31/19 predniSONE [Deltasone -] 40 mg PO DAILY #10 tablet 01/31/19 Asthma: Yes (on remission) COPD: No HTN: Yes - Immunization History Immunization Up to Date: Yes - Psycho Social/Smoking Cessation Hx Smoking Status: No Smoking History: Never smoked Have you smoked in the past 12 months: No Number of Cigarettes Smoked Daily: 0 If you are a former smoker, when did you quit?: 25 years ago Hx Alcohol Use: No Drug/Substance Use Hx: No Substance Use Type: None Review of Systems - Review of Systems Able to Perform ROS?: Yes Comments:: 05/25/19 22:33 GENERAL/CONSTITUTIONAL: No fever or chills. No weakness. HEAD, EYES, EARS, NOSE AND THROAT: No change in vision. No ear pain or discharge. No sore throat. CARDIOVASCULAR: No chest pain or shortness of breath. RESPIRATORY: No cough, wheezing, or hemoptysis. GASTROINTESTINAL: No nausea, vomiting, diarrhea or constipation. GENITOURINARY: No dysuria, frequency, or change in urination. MUSCULOSKELETAL: +LLQ pain. No joint or muscle swelling. No neck or back pain. SKIN: No rash NEUROLOGIC: No headache, vertigo, loss of consciousness, or change in strength/ sensation. ENDOCRINE: No increased thirst. No abnormal weight change. HEMATOLOGIC/LYMPHATIC: No anemia, easy bleeding, or history of blood clots. ALLERGIC/IMMUNOLOGIC: No hives or skin allergy. *Physical Exam - Vital Signs Last Vital Signs Temp Pulse Resp BP Pulse Ox 98.4 F 77 20 162/93 99 05/25/19 20:07 05/25/19 20:07 05/25/19 20:07 05/25/19 20:07 05/25/19 20:07 - Physical Exam 05/25/19 22:47 GENERAL: Awake, alert, and fully oriented, in no acute distress HEAD: No signs of trauma NECK: Normal ROM, supple, no lymphadenopathy, JVD, or masses LUNGS: Breath sounds equal, clear to auscultation bilaterally. No wheezes, and no crackles HEART: Regular rate and rhythm, normal S1 and S2, no murmurs, rubs or gallops ABDOMEN: +reducible umbilical hernia. +LLQ tenderness to palpation. Soft, normoactive bowel sounds. No guarding, no rebound. EXTREMITIES: Normal range of motion, no edema. No clubbing or cyanosis. No cords, erythema, or tenderness NEUROLOGICAL: Cranial nerves II through XII grossly intact. SKIN: Warm, Dry, normal turgor, no rashes or lesions noted. Heart Score/ECG Review - ECG Intrepretation Comment:: 05/26/19 00:17 sinus at 64, 1st degree av block, nl axis, no acute st/t wave findings ED Treatment Course - LABORATORY CBC & Chemistry Diagram: 05/25/19 22:40 05/25/19 22:40 - RADIOLOGY Radiology Studies Ordered: Category Date Time Status ABDOMEN & PELVIS CT WITH CONTR [CT] Stat CT Scan 05/25/19 22:41 Ordered CHEST X-RAY PORTABLE* [RAD] Stat Radiology 05/25/19 22:41 Ordered Medical Decision Making - Medical Decision Making 05/25/19 22:54 a/p: 69yo male with LLQ pain x 4 days -hx of diverticulitis, has been eating nuts -denies n/v/d -having regular bowel movements -no f/c -no cp/sob -concern for hernia vs diveriticulitis -will send labs, lactate, ivf hydraiton, pain control, ct 05/25/19 23:42 cxr clear labs reviewed no elevated wbc lactate 2.[address] ivf hydration running 05/26/19 01:42 ua neg 05/26/19 02:07 pt with piploic appendagitis discussed ct findings pt states pain resolved stable for dc to home states he will take aleve for pain pt states he will follow up with his doc and discussed all reasons to return to the ER Discharge - Discharge Information Problems reviewed: Yes Clinical Impression/Diagnosis: Abdominal discomfort in left lower quadrant, Appendicitis epiploica Condition: Stable Disposition: HOME - Admission No - Follow up/Referral Referrals: Mali Rahcel MD [Primary Care Provider] - Howie Cohen MD [Staff Physician] - Nivia Rogers MD [Staff Physician] - - Patient Discharge Instructions Patient Printed Discharge Instructions: DI for Mesenteric Adenitis-Adult Additional Instructions: Please drink plenty of fluids. Please take tylenol or motrin as needed for pain. Please follow up with your PMD and the GI specialist. Please return to the ER with any further concerns or complaints. - Post Discharge Activity
[2019-05-25 23:04] LABS: INR 1.03 (0.83-1.09); PROTHROMBIN TIME (PATIENT) 12.1 SEC (9.7-13.0)
[2019-05-25 23:06] LABS: ACTIVATED PTT 34.7 SECONDS (25.2-36.5)
[2019-05-25 23:12] LABS: MAGNESIUM 2.3 mg/dL (1.8-2.4)
[2019-05-25 23:18] LABS: ALBUMIN 3.8 g/dl (3.4-5.0); BILIRUBIN,TOTAL 0.3 mg/dL (0.2-1); BLOOD UREA NITROGEN 21.1 mg/dL (7-18); CALCIUM 8.9 mg/dL (8.5-10.1); CREATININE 1.1 mg/dL (0.55-1.3); POTASSIUM 3.7 mmol/L (3.5-5.1)
[2019-05-25] MEDS ORDERED: morphine SULFATE 4 MG/ML VIAL ONE (23:35)
[2019-05-25] MEDS ORDERED: ONDANSETRON 4 MG/2 ML VIAL IVPUSH ONE (23:45)
[2019-05-25] MEDS ORDERED: ONDANSETRON 4 MG/2 ML VIAL ONE (23:46)
[2019-05-26 00:57] LABS: URINE APPEARANCE CLEAR; URINE BILIRUBIN NEGATIVE (NEGATIVE); URINE COLOR DK YELLOW; URINE GLUCOSE (UA) NEGATIVE (NEGATIVE); URINE KETONE TRACE (NEGATIVE); URINE LEUK ESTERASE NEGATIVE (NEGATIVE); URINE NITRITE NEGATIVE (NEGATIVE); URINE PROTEIN TRACE (NEGATIVE); URINE UROBILINOGEN 0.2 mg/dL (0.2-1.0)
[2019-05-26 02:43] VITALS: BP 155/87; PULSE 75
--- NOTE | 2019-05-26 12:40 | EKG ---
Test Reason : Blood Pressure : / mmHG Vent. Rate : 064 BPM Atrial Rate : 064 BPM P-R Int : 200 ms QRS Dur : 100 ms QT Int : 434 ms P-R-T Axes : 059 000 025 degrees QTc Int : 447 ms NORMAL SINUS RHYTHM MINIMAL VOLTAGE CRITERIA FOR LVH, MAY BE NORMAL VARIANT BORDERLINE ECG WHEN COMPARED WITH ECG OF 03-NOV-2018 07:56, NO SIGNIFICANT CHANGE WAS FOUND Confirmed by ALKA HERNANDEZ MD ([id number]) on 05/26/2019 12:39:40 PM Referred By: Confirmed By:ALKA HERNANDEZ MD
== END 2019-05-26 02:40 | disposition home or self-care (01) ==
LOC: JER 19:43
PROC: 3E033GC Introduction of Other Therapeutic Substance into Peripheral Vein, Percutaneous Approach (ICD-10-PCS; principal; 2019-05-25)
PROC: 3E033NZ Introduction of Analgesics, Hypnotics, Sedatives into Peripheral Vein, Percutaneous Approach (ICD-10-PCS; 2019-05-25)
DX: K63.89 Other specified diseases of intestine (principal); K43.9 Ventral hernia without obstruction or gangrene; K42.9 Umbilical hernia without obstruction or gangrene; K57.32 Diverticulitis of large intestine without perforation or abscess without bleeding; I10 Essential (primary) hypertension; Z87.09 Personal history of other diseases of the respiratory system
CPT/HCPCS: 36415; 71045-TC-FY; 74177-TC; 80053; 81003; 83605; 83690; 83735; 85025; 85610; 85730; 87077; 87086; 93005; 93010; 99283-25; J7030

== ENCOUNTER 2020-02-03 13:10 | Emergency (ER) | payer BC, OTHER ==
[2020-02-03 13:18] VITALS: TEMP 98; BMI 38.0
--- NOTE | 2020-02-03 14:10 | PDOC ---
History of Present Illness - General Chief Complaint: Hemoptysis Stated Complaint: COUGHING UP BLOOD Time Seen by Provider: 02/03/20 13:39 - History of Present Illness Initial Comments: HPI: 02/03/20 14:10 69 yo M PMH HTN, asthma (well-controlled, on only intermittent Singulair), systolic murmur ("since I was 9 or 10 years old"), umbilical hernia, diverticulitis, prior episodes of bronchitis, sleep apnea, chronic back pain (lumbar, sees a pain specialist in [place]), presenting with hemoptysis. Mr. Staton states that he was coughing last night and noted blood in the mucus. Had concomitant throat clearing and mild throat pain, since resolved. Called his PCP this morning, who encouraged him to be evaluated. Denies true SOB, but states that "it feels like my lungs are dry". Notes that his symptoms feel similar to prior episodes of bronchitis, albeit early in the course. Has no other complaints. ROS: GENERAL/CONSTITUTIONAL: denies fever, chills, diaphoresis, generalized weakness, malaise HEAD, EYES, EARS, NOSE AND THROAT: denies rhinorrhea, nasal congestion NEUROLOGIC: denies headache, focal weakness, dizziness, unsteady gait, seizure, mental status changes CARDIOVASCULAR: denies chest pain, syncope, palpitations, irregular heart rate, lightheadedness, peripheral edema RESPIRATORY: endorses cough, "dry lungs", and hemoptysis. Denies shortness of breath, dyspnea with exertion, wheezing GASTROINTESTINAL: denies abdominal pain, abdominal distension, nausea, vomiting, diarrhea, constipation GENITOURINARY: denies dysuria, frequency, urgency MUSCULOSKELETAL: denies myalgia, arthralgia, joint swelling, back pain, neck pain SKIN: denies rash, itching PE: Gen: well-developed, well-nourished, NAD Neuro: AAOX4, CN II-XII intact HEENT: atraumatic, normocephalic Neck: trachea midline, supple CV: regular rate, regular rhythm, systolic murmur Pulm: CTA b/l, no wheezing Abd: soft, non-distended, non-tender MSK: full ROM, intact pulses Extr: no edema, no deformities Skin: warm, dry MDM: Concern for possible bronchitis. - CXR - COVID-19 swab - rapid strep considering throat pain yesterday - reassess - likely dc for further outpatient management 02/03/20 14:36 CXR without acute pathology. 02/03/20 15:25 Group A strep negative. 02/03/20 16:03 Patient reassessed. Feeling well. Will dc for further outpatient management. Past History - Medical History Allergies/Adverse Reactions: Allergies Allergy/AdvReac Type Severity Reaction Status Date / Time No Known Allergies Allergy Verified 02/03/20 13:13 Home Medications: Ambulatory Orders Nebivolol HCl [Bystolic] 5 mg PO DAILY 10/19/11 Montelukast Na [Singulair -] 10 mg PO HS #30 tablet 10/07/16 Aspirin 81 mg PO DAILY 03/05/18 Benzonatate [Tessalon Pearls -] 200 mg PO TID #40 cap 01/31/19 Hydrocodone Bit/Homatrop Me-Br [Hydrocodone-Homatropine Syrup] 5 ml PO HS PRN #60 syrup MDD 10 01/31/19 predniSONE [Deltasone -] 40 mg PO DAILY #10 tablet 01/31/19 Asthma: Yes (on remission) COPD: No HTN: Yes - Immunization History Immunization Up to Date: Yes - Psycho-Social/Smoking History Smoking Status: No Smoking History: Never smoked Have you smoked in the past 12 months: No Number of Cigarettes Smoked Daily: 0 If you are a former smoker, when did you quit?: 25 years ago - Substance Abuse Hx (Audit-C & DAST Scrn) How often the patient has a drink containing alcohol: Never Score: In Men: 4 or > Positive; In Women: 3 or > Positive: 0 Screen Result (Pos requires Nsg. Audit-10AR): Negative In the last yr the pt used illegal drug/Rx for NonMed reason: No Score: Yes response is considered Positive: 0 Screen Result (Positive result requires Nsg. DAST-10): Negative *Physical Exam - Vital Signs Last Vital Signs Temp Pulse Resp BP Pulse Ox 98 F 82 18 165/88 98 02/03/20 13:13 02/03/20 13:13 02/03/20 13:13 02/03/20 13:13 02/03/20 13:13 Discharge - Discharge Information Problems reviewed: Yes Clinical Impression/Diagnosis: Hemoptysis Condition: Stable Disposition: HOME - Admission No - Follow up/Referral Referrals: Fredis Moran MD [Primary Care Provider] - - Patient Discharge Instructions Patient Printed Discharge Instructions: DI for Acute Bronchitis, DI for Hemoptysis Additional Instructions: You were seen for coughing blood. Your chest X ray did not show any concerning abnormalities. This is most likely to be either cough induced or early bronchitis. Please follow up with your primary care doctor within one week. Return to the ER if you develop new or worsening symptoms. - Post Discharge Activity
--- NOTE | 2020-02-03 14:44 | PDOC ---
Documentation entered by Munir Donahue SCRIBE, acting as scribe for Martin Ford MD. Martin Ford MD: This documentation has been prepared by the Rowan yap Xhesika, SCRIBE, under my direction and personally reviewed by me in its entirety. I confirm that the documentation accurately reflects all work, treatment, procedures, and medical decision making performed by me. Attending Attestation - Resident Resident Name: Suhail Greenberg - ED Attending Attestation I have performed the following: I have examined & evaluated the patient, The case was reviewed & discussed with the resident, I agree w/resident's findings & plan, Exceptions are as noted - HPI HPI: 02/03/20 13:55 The patient is a 69 year old male with a significant PMH of umbilical hernia, diverticulitis, HTN, asthma, bronchitis, sleep apnea who presents to the emergency department for hemoptysis. Pt states he started with mod sore throat 2 days ago, he was clearning his throat and noticed some blood in the sputum. also endorses mild cough. Pt states he called his PCP and was advised to come to the ED for further evaluation. Pt denies any other symptoms but states his "lungs feel dry." Pt states his symptoms are similar to his previous early stages of bronchitis. Denie sob/cp, leg sweling, calf pain. The patient denies chest pain, shortness of breath, headache and dizziness. Denies fever, chills, nausea, diarrhea and constipation. Denies dysuria, frequency, urgency and hematuria. Allergies: NKDA Pulm: Dr. Crews PCP: Fredis Flores - Physicial Exam PE: 02/03/20 14:43 GENERAL: The patient is awake, alert, and fully oriented, Nontoxic - in no acute distress. HEAD: Normocephalic, atraumatic. EYES: extraocular movements intact, sclera anicteric, conjunctiva clear. ENT: Normal voice, Moist mucous membranes. NECK: Normal range of motion, supple LUNGS: Breath sounds equal, clear to auscultation bilaterally. No wheezes, no rhonchi, no rales. HEART: Regular rate and rhythm, normal S1 and S2 without murmur, rub or gallop. ABDOMEN: Soft, nontender, No guarding, no rebound. No CVA tenderness EXTREMITIES: Normal range of motion, no edema. NEUROLOGICAL: No facial assymetry, Normal speech, PSYCH: Normal mood, normal affect. SKIN: Warm, Dry, normal turgor, - Medical Decision Making 02/03/20 14:43 Likely viral syndrome, will obtain a rapid strep, COVID, chest x-ray. Discharge - Discharge Information Problems reviewed: Yes Clinical Impression/Diagnosis: Hemoptysis Condition: Stable Disposition: HOME - Admission No - Follow up/Referral Referrals: Fredis Moran MD [Primary Care Provider] - - Patient Discharge Instructions Patient Printed Discharge Instructions: DI for Acute Bronchitis, DI for Hemoptysis Additional Instructions: You were seen for coughing blood. Your chest X ray did not show any concerning abnormalities. This is most likely to be either cough induced or early bronchitis. Please follow up with your primary care doctor within one week. Return to the ER if you develop new or worsening symptoms. - Post Discharge Activity
--- OUTSIDE RECORDS SUMMARY | 2020-02-03 14:45 | XMS ---
:1950 Author Organization [facility] Support Name Relationship Address Phone RE Unavailable Unavailable Unavailable LAURA ASENCIO [address] ( [phone] [place] [address] Re-disclosure Warning The records that you are about to access may contain information from federally- assisted alcohol or drug abuse programs. If such information is present, then the following federally mandated warning applies: This information has been disclosed to you from records protected by federal confidentiality rules (42 CFR part 2). The federal rules prohibit you from making any further disclosure of this information unless further disclosure is expressly permitted by the written consent of the person to whom it pertains or as otherwise permitted by 42 CFR part 2. A general authorization for the release of medical or other information is NOT sufficient for this purpose. The Federal rules restrict any use of the information to criminally investigate or prosecute any alcohol or drug abuse patient.The records that you are about to access may contain highly sensitive health information, the redisclosure of which is protected by Article 27-F of the [facility] Public Health law. If you continue you may haveaccess to information: Regarding HIV / AIDS; Provided by facilities licensed or operated by the [facility] Office of Mental Health; or Provided by the [facility] Office for People With Developmental Disabilities. If such information is present, then the following [facility] mandated warning applies: This information has been disclosed to you from confidential records which are protected by state law. State law prohibits you from making any further disclosure of this information without the specific written consent of the person to whom it pertains, or as otherwise permitted by law. Any unauthorized further disclosure in violation of state law may result in a fine or mcfp sentence or both. A general authorization for the release of medical or other information is NOT sufficient authorization for further disclosure. Encounters Encounter Providers Location Date Indications Data Source(s ) (TEL) [address] 09/15/2019 eCW1 ([facility] 12:00:00 AM [facility]) [address] 05/26/2019 eCW1 ([facility] 12:00:00 AM [facility]) [address] 02/03/2019 eCW1 ([facility] 12:00:00 AM [facility]) Medications Medication Brand Start Product Dose Route Administrative Pharmacy [facility] Indications Reaction Description Data Name Date Form Instructions Instructions Source(s) homatropine Hydroc 5.0 active Hydroco done- eCW methylbromi odone- 2018 {ml_a Homatropin e ([facility] de 0.3 [facility] 12:00: s_nee 5-1.5 MG/5ML Jhonathan MG/ML / opine 00 AM ded} Medical Hydrocodone 5-1.5 EDT Practic e Bitartrate MG/5ML PC) 1 MG/ML Oral Solution Hydrocodone -Homatropin e 5-1.5 MG/5ML homatropine Hydroc 02/03/ active 5 ml as eCW1 methylbromi odone- 2018 needed ([facility]ladislav nt de 0.3 Homatr 12:00: Jhonathan MG/ML / opine 00 AM Medical Hydrocodone 5-1.5 EDT Practic e Bitartrate MG/5ML PC) 1 MG/ML Oral Solution Hydrocodone -Homatropin e 5-1.5 MG/5ML Insurance Providers Payer name Policy type Policy ID Covered Covered libertarian's Policy P estefany / Coverage libertarian ID relationship to Onofre Inf ormation type onofre MEDICARE [id number] SP [id number] GHI CBP [id number] SP [id number] OUTPT BC PPO [id number] SP [id number] MEDICARE [id number] SP [id number] A Problems, Conditions, and Diagnoses Code Display Name Description Problem Type Effective Dates Data Source(s) R05 [id number] Cough Problem 02/03/2019 12:00:00 eCW1 ([facility] R05 Cough Cough Problem 02/03/2019 12:00:00 eCW1 ([facility]) Vital Signs ID Date Data Source UNK Name Value Range Interpretation Code Description Data Source(s) Diastolic blood 76 mm[Hg] 76 mm[Hg] eCW1 ([facility] nt pressure [facility]) Systolic blood 140 mm[Hg] 140 mm[Hg] eCW1 ([facility]) Heart rate 70 /min 70 /min eCW1 ([facility]) Body mass index 37.70 kg/m2 37.70 kg/m2 eCW1 (S aint (BMI) [Ratio] [facility]) Body weight 278 [lb_av] 278 [lb_av] eCW1 ([facility]) Body height [in_us] eCW1 ([facility])
[2020-02-03 16:20] VITALS: BP 138/86; PULSE 64
== END 2020-02-03 16:19 | disposition home or self-care (01) ==
LOC: JER 13:10 → SUPCPDRO 13:10 → JER 16:19
DX: R04.2 Hemoptysis (principal)
CPT/HCPCS: 71046-TC-FY; 87070; 87880; 99285-25; C9803; U0003

== ENCOUNTER 2022-03-31 09:39 | Emergency (ER) | payer BC, OTHER ==
[2022-03-31 09:48] VITALS: RESP 18; TEMP 98.2; BMI 37.0
[2022-03-31] MEDS ORDERED: ACETAMINOPHEN 1000 MG/100 ML BAG IVPB ONE (10:30)
[2022-03-31] MEDS ORDERED: DIPHTH,PERTUSS(ACELL),TET 0.5 ML DISP.SYRIN IM ONE ×2 (10:31→13:14)
[2022-03-31] MEDS ORDERED: ACETAMINOPHEN INJECTION 100 ML IVPB ONE (13:14)
[2022-03-31 13:54] LABS: BASO % 0.7 % (0-2.0); EOS % 1.4 % (0-4.5); HEMATOCRIT 42.8 % (35.4-49); HEMOGLOBIN 14.3 GM/dL (11.7-16.9); LYMPH % 34.3 % (8-40); MCHC 33.4 g/dl (32.0-35.9); MEAN CELL VOLUME 98.7 fl (80-96); MEAN PLT VOLUME 8.8 fl (7.5-11.1); MONO % 8.9 % (3.8-10.2); NEUT % 54.7 % (42.8-82.8); PLATELET COUNT 250 10^3/uL (134-434); RBC 4.34 M/mm3 (4.00-5.60); RDW 13.3 % (11.9-15.9); WHITE BLOOD COUNT 5.9 K/mm3 (4.0-10.0)
[2022-03-31 13:56] LABS: INR 1.08 (0.83-1.09); PROTHROMBIN TIME (PATIENT) 12.4 SEC (9.7-13.0)
[2022-03-31 13:58] LABS: ACTIVATED PTT 29.3 SECONDS (25.2-36.5)
[2022-03-31 14:10] LABS: BLOOD UREA NITROGEN 12.2 mg/dL (7-18); CALCIUM 9.2 mg/dL (8.5-10.1)
[2022-03-31 14:11] LABS: CREATININE 0.9 mg/dL (0.55-1.3)
[2022-03-31 14:12] LABS: BILIRUBIN,TOTAL 0.8 mg/dL (0.2-1); TOT PROT 7.5 g/dl (6.4-8.2)
[2022-03-31 17:24] VITALS: BP 147/87; PULSE 88
== END 2022-03-31 18:26 | disposition home or self-care (01) ==
LOC: JER 09:39
PROC: 3E033GC Introduction of Other Therapeutic Substance into Peripheral Vein, Percutaneous Approach (ICD-10-PCS; principal; 2022-03-31)
DX: M79.604 Pain in right leg (principal); V03.10XA Pedestrian on foot injured in collision with car, pick-up truck or van in traffic accident, initial encounter
CPT/HCPCS: 36415; 70450-TC; 71260-TC; 72125-TC; 72170-TC-FY; 73552-TC-RT-FY; 73562-TC-RT-FY; 74177-TC; 80053; 85025; 85610; 85730; 90715; 99285-25; Q9967